=== PATIENT | female | born 1980 | race Caucasian/White ===

== ENCOUNTER 2016-08-01 15:58 | Inpatient (IN) | payer BC, OTHER ==
[~2016-08-01] VITALS: Ht 152.4 cm; Wt 109.8 kg
[~2016-08-01 15:58] MED LIST: ATIVAN1 MG PO; B COMPLEX1 EAC1 PO; BACTRIM DS TAB1 EACH PO; CALCIUM 600 +1 EAC1 PO; K-DUR 20 MEQ T20 MEQ PO; KLONOPIN0.5 MG; LABETALOL 100100 MG PO; LEVOTHYROXIN0.025 MG PO; LISINOPRIL20 MG PO; LISINOPRIL5 MG; MELATONIN3 MG PO; METOPROLOL SUCC25 M1; MULTIVITAMINS1 EAC7 PO; NORCO 5-325 TA1 EACH PO; ONE-A-DAY WOMENS PO; PERCOCET 10-321 EACH; PRAVACHOL20 MG; PRENATAL; PROZAC20 MG PO; TOPAMAX; TOPROL XL100 MG PO; TYLENOL W/CODEI1 TA2 PO; VITAMIN B-12500 MCG PO; VITAMINC500 PO; ZOCOR 10 MG TAB10 MG; ZOCOR20 MG PO; ZOLOFT; ZOLOFT50 MG PO; [UNRECOGNIZED DRUG - OTHER]
[2016-08-01 15:59] VITALS: BP 104/83
[2016-08-01] MEDS ORDERED: CLONAZEPAM 0.50.5 M1 PO (16:11)
[2016-08-01] MEDS ORDERED: SERTRALINE HCL100 MG PO (16:11)
[2016-08-01 16:25] LABS: URINE BILIRUBIN NEGATIVE (Negative); URINE BLOOD 3+ (Negative); URINE COLOR RED; URINE GLUCOSE-RANDOM* TRACE (Negative); URINE KETONES TRACE (Negative); URINE LEUKOCYTES-REFLEX TRACE (Negative); URINE PROTEIN (DIPSTICK) 3+ (Negative); URINE SPECIFIC GRAVITY >= 1.030 (1.003-1.035)
[2016-08-01 16:34] LABS: CASTS None Seen /LPF (None Seen); CRYSTALS None Seen /LPF (None Seen); SQUAMOUS 0-3 Few /LPF (0-3); URINE RBC >20 Many /HPF (0-2); URINE WBC-REFLEX 0-5 Rare /HPF (0-5)
[2016-08-01 16:39] LABS: ABSOLUTE NEUTROPHILS 4.2 thou/uL (1.4-8.2); BASOPHILS 1.1 % (0.0-2.0); EOSINOPHILS 2.4 % (0.0-3.0); HEMATOCRIT 41.3 % (37.0-47.0); HEMOGLOBIN 14.3 gm/dL (12.0-15.0); LYMPHOCYTES 26.4 % (24.0-44.0); MANUAL DIFF NO; MCH 31.9 pg (26.0-34.0); MCHC 34.5 g/dL (28.0-37.0); MCV 92.4 fL (80.0-100.0); MONOCYTES 5.8 % (1.0-8.0); PLATELET COUNT 186 thou/uL (150-400); POLYS 64.3 % (36.0-66.0); RBC 4.47 mil/uL (4.20-5.00); RDW 14.2 % (10.5-14.5); WBC 6.6 thou/uL (4.0-11.0)
[2016-08-01 16:46] LABS: AMP/METHAMP POSITIVE (Negative); BARBITURATES Negative (Negative); BENZODIAZEPINES POSITIVE (Negative); COCAINE Negative (Negative); METHADONE Negative (Negative); OPIATES Negative (Negative); PCP Negative (Negative); THC Negative (Negative)
[2016-08-01 16:47] LABS: CALCIUM 8.3 mg/dL (8.5-10.1); CREATININE 0.7 mg/dL (0.6-1.0); POTASSIUM 3.5 mmol/L (3.5-5.1)
[2016-08-01 16:52] LABS: TOTAL BILIRUBIN 0.6 mg/dL (<0.1-1.0); TOTAL PROTEIN 7.4 g/dL (6.4-8.2)
[2016-08-01 18:36] VITALS: BP 117/84
[2016-08-02 00:08] VITALS: BP 143/98
[2016-08-02 04:11] VITALS: BP 150/105
[2016-08-02 06:15] LABS: HEMOGLOBIN 13.5 gm/dL (12.0-15.0); MCH 32.3 pg (26.0-34.0); MCHC 34.7 g/dL (28.0-37.0); RBC 4.19 mil/uL (4.20-5.00); RDW 13.9 % (10.5-14.5); WBC 5.2 thou/uL (4.0-11.0)
[2016-08-02 06:28] LABS: CALCIUM 7.7 mg/dL (8.5-10.1); CREATININE 0.6 mg/dL (0.6-1.0); POTASSIUM 3.3 mmol/L (3.5-5.1)
[2016-08-02 07:29] VITALS: BP 158/100
[2016-08-02 11:47] VITALS: BP 147/98
[2016-08-02 15:36] VITALS: BP 153/115
[2016-08-02 19:24] VITALS: BP 154/95
[2016-08-03 04:07] VITALS: BP 149/106
[2016-08-03 06:04] LABS: ALBUMIN 2.7 g/dL (3.4-5.0); CALCIUM 7.5 mg/dL (8.5-10.1); CREATININE 0.6 mg/dL (0.6-1.0); POTASSIUM 3.4 mmol/L (3.5-5.1); TOTAL PROTEIN 6.5 g/dL (6.4-8.2)
[2016-08-03 06:12] LABS: ABSOLUTE NEUTROPHILS 2.8 thou/uL (1.4-8.2); BASOPHILS 0.5 % (0.0-2.0); EOSINOPHILS 2.6 % (0.0-3.0); HEMATOCRIT 34.7 % (37.0-47.0); HEMOGLOBIN 12.2 gm/dL (12.0-15.0); LYMPHOCYTES 32.7 % (24.0-44.0); MCH 31.9 pg (26.0-34.0); MCHC 35.3 g/dL (28.0-37.0); MCV 90.5 fL (80.0-100.0); MONOCYTES 6.6 % (1.0-8.0); PLATELET COUNT 121 thou/uL (150-400); POLYS 57.6 % (36.0-66.0); RBC 3.83 mil/uL (4.20-5.00); RDW 13.6 % (10.5-14.5); WBC 4.8 thou/uL (4.0-11.0)
[2016-08-03 06:18] LABS: MANUAL DIFF NO
[2016-08-03 07:20] VITALS: BP 151/98
[2016-08-03 11:06] VITALS: BP 139/98
[2016-08-03] MEDS ORDERED: CLONAZEPAM 0.50.5 M1 PO (13:59)
[2016-08-03] MEDS ORDERED: LEVAQUIN 500 M500 M1 PO (13:59)
[2016-08-03 14:09] VITALS: BP 139/98
== END 2016-08-03 15:27 | disposition home or self-care (01) | DRG 896 ==
LOC: ER 15:58 → 4W 17:02 → EROBS 17:02 → 4W 18:36
PROVIDERS: Hospitalist; Physician Assistant
DX: F10.239 Alcohol dependence with withdrawal, unspecified (principal); G92 Toxic encephalopathy; I10 Essential (primary) hypertension; E78.5 Hyperlipidemia, unspecified; F15.10 Other stimulant abuse, uncomplicated; E03.9 Hypothyroidism, unspecified; R79.89 Other specified abnormal findings of blood chemistry; F41.9 Anxiety disorder, unspecified; F17.210 Nicotine dependence, cigarettes, uncomplicated; Y90.6 Blood alcohol level of 120-199 mg/100 ml; Z88.1 Allergy status to other antibiotic agents; Z88.0 Allergy status to penicillin; Z79.899 Other long term (current) drug therapy; Z71.51 Drug abuse counseling and surveillance of drug abuser; Z90.49 Acquired absence of other specified parts of digestive tract
CPT/HCPCS: 10045

== ENCOUNTER 2017-08-15 21:39 | Emergency (ER) | payer OTHER ==
[~2017-08-15] VITALS: Ht 175.3 cm; Wt 130.6 kg
[~2017-08-15 21:39] MED LIST changes: +CHLORDIAZEPOXID25 M1 PO; +CLONAZEPAM 0.50.5 M1 PO; +LEVAQUIN 500 M500 M1 PO; +SERTRALINE HCL100 MG PO; +XANAX 0.25 MG0.25 MG PO; +ZANAFLEX4 MG PO
[2017-08-15 22:02] LABS: URINE BILIRUBIN NEGATIVE (Negative); URINE BLOOD NEGATIVE (Negative); URINE CLARITY CLEAR; URINE COLOR YELLOW; URINE GLUCOSE-RANDOM* NEGATIVE (Negative); URINE KETONES NEGATIVE (Negative); URINE LEUKOCYTES-REFLEX NEGATIVE (Negative); URINE NITRITE-REFLEX NEGATIVE (Negative); URINE PROTEIN (DIPSTICK) 1+ (Negative); URINE UROBILINOGEN 0.2 E.U./dl (0.2-1.0)
[2017-08-15 22:28] LABS: BASOPHILS 0.5 % (0.0-2.0); HEMATOCRIT 34.7 % (37.0-47.0); HEMOGLOBIN 11.9 gm/dL (12.0-15.0); LYMPHOCYTES 21.5 % (24.0-44.0); MCHC 34.2 g/dL (28.0-37.0); MCV 87.8 fL (80.0-100.0); MONOCYTES 5.4 % (1.0-8.0); PLATELET COUNT 190 thou/uL (150-400); POLYS 68.6 % (36.0-66.0); RBC 3.96 mil/uL (4.20-5.00); RDW 13.3 % (10.5-14.5); WBC 8.7 thou/uL (4.0-11.0)
[2017-08-15 22:36] LABS: CALCIUM 9.6 mg/dL (8.5-10.1); CREATININE 0.7 mg/dL (0.6-1.0); POTASSIUM 3.6 mmol/L (3.5-5.1)
[2017-08-15] MEDS ORDERED: PHENAZOPYRIDIN200 M2 PO (22:51)
[2017-08-15] MEDS ORDERED: MACROBID 100 M100 M1 PO (22:51)
== END 2017-08-15 23:02 | disposition home or self-care (01) ==
LOC: ER 21:39
PROVIDERS: Physician Assistant
DX: N39.0 Urinary tract infection, site not specified (principal); F17.210 Nicotine dependence, cigarettes, uncomplicated; I10 Essential (primary) hypertension; F41.9 Anxiety disorder, unspecified; F31.9 Bipolar disorder, unspecified; E78.5 Hyperlipidemia, unspecified; E03.9 Hypothyroidism, unspecified; Z88.1 Allergy status to other antibiotic agents; Z88.0 Allergy status to penicillin

== ENCOUNTER 2017-08-18 11:10 | Emergency (ER) | payer OTHER ==
[~2017-08-18] VITALS: Ht 167.6 cm; Wt 113.4 kg
--- NOTE | ~2017-08-18 | EKG ---
[address] [address] ELECTROCARDIOGRAM REPORT Name: CARLOSKAYKAY K [facility] [id number] Admission: 08/18/17 Attend Phys: Discharge: 08/18/17 Date of : 82 Report #: [id number] THIS REPORT FOR: //name// [facility] ED Test Date: 2017-08-18 Test Time: 11:23:03 Pat Name: KAYKAY CARLOS Department: Room: Gender: F Orchid Hand: MECCA : 1980 Requested By: January Aden Order Number: [id number] MD: Narinder Fernandes Measurements Intervals [place] Rate: 72 P: 28 FL: 161 QRS: 20 QRSD: 96 T: 35 QT: 413 QTc: 453 Interpretive Statements Sinus rhythm Probable left atrial enlargement Compared to ECG 04/18/2015 00:34:25 No significant changes Electronically Signed On 08-19-2017 7:58:30 CDT by Narinder Fernandes [email or web address] <ELECTRONICALLY SIGNED> By: Narinder Fernandes MD 08/19/17 0758 22 22 Narinder Fernandes MD /LEVI
[~2017-08-18 11:10] MED LIST changes: +MACROBID 100 M100 M1 PO; +PHENAZOPYRIDIN200 M2 PO
[2017-08-18 12:13] LABS: ABSOLUTE NEUTROPHILS 6.4 thou/uL (1.4-8.2); BASOPHILS 0.4 % (0.0-2.0); EOSINOPHILS 3.2 % (0.0-3.0); HEMOGLOBIN 12.1 gm/dL (12.0-15.0); LYMPHOCYTES 17.7 % (24.0-44.0); MCH 29.7 pg (26.0-34.0); MCHC 33.7 g/dL (28.0-37.0); MCV 88.2 fL (80.0-100.0); MONOCYTES 5.9 % (1.0-8.0); PLATELET COUNT 208 thou/uL (150-400); POLYS 72.8 % (36.0-66.0); RBC 4.08 mil/uL (4.20-5.00); RDW 13.7 % (10.5-14.5); WBC 8.8 thou/uL (4.0-11.0)
[2017-08-18 12:24] LABS: ANION GAP 9 mmol/L (7-16); BUN 15 mg/dL (7-18); CALCIUM 8.9 mg/dL (8.5-10.1); CHLORIDE 101 mmol/L (98-107); CO2 26 mmol/L (21-32); CREATININE 1.1 mg/dL (0.6-1.0); GLUCOSE 108 mg/dL (74-106); POTASSIUM 3.9 mmol/L (3.5-5.1); SODIUM 136 mmol/L (136-145)
[2017-08-18 12:28] LABS: ALBUMIN 3.4 g/dL (3.4-5.0); DIRECT BILIRUBIN < 0.1 mg/dL (<0.1-0.3); LIPASE 164 U/L (73-393); SGOT 35 U/L (15-37); SGPT 44 U/L (30-65); TOTAL BILIRUBIN 0.3 mg/dL (<0.1-1.0); TOTAL PROTEIN 7.8 g/dL (6.4-8.2)
[2017-08-18 13:01] LABS: URINE BILIRUBIN NEGATIVE (Negative); URINE BLOOD NEGATIVE (Negative); URINE CLARITY SL CLOUDY; URINE COLOR YELLOW; URINE GLUCOSE-RANDOM* TRACE (Negative); URINE KETONES TRACE (Negative); URINE PROTEIN (DIPSTICK) 2+ (Negative)
[2017-08-18 13:02] LABS: URINE LEUKOCYTES-REFLEX 1+ (Negative); URINE NITRITE-REFLEX POSITIVE (Negative)
[2017-08-18 13:19] LABS: CASTS None Seen /LPF (None Seen); CRYSTALS None Seen /LPF (None Seen); SQUAMOUS >10 Many /LPF (0-3); URINE RBC None Seen /HPF (0-2); URINE WBC-REFLEX 0-5 Rare /HPF (0-5)
[2017-08-18] MEDS ORDERED: BACTRIM DS TAB1 EACH PO (18:16)
== END 2017-08-18 18:38 | disposition home or self-care (01) ==
LOC: ER 11:10
PROVIDERS: Emergency Medicine
DX: N39.0 Urinary tract infection, site not specified (principal); R55 Syncope and collapse; I95.9 Hypotension, unspecified; I10 Essential (primary) hypertension; F41.9 Anxiety disorder, unspecified; E78.5 Hyperlipidemia, unspecified; F31.9 Bipolar disorder, unspecified; E03.9 Hypothyroidism, unspecified; F17.210 Nicotine dependence, cigarettes, uncomplicated; Z88.0 Allergy status to penicillin; Z88.1 Allergy status to other antibiotic agents

== ENCOUNTER 2018-11-19 07:27 | Inpatient (IN) | payer OTHER ==
[~2018-11-19] VITALS: Ht 175.3 cm; Wt 113.4 kg
[2018-11-19 07:28] VITALS: BP 190/117
[2018-11-19 08:01] LABS: ABSOLUTE NEUTROPHILS 3.3 thou/uL (1.4-8.2); BASOPHILS 0.8 % (0.0-2.0); EOSINOPHILS 2.6 % (0.0-3.0); HEMATOCRIT 38.6 % (37.0-47.0); HEMOGLOBIN 13.2 gm/dL (12.0-15.0); LYMPHOCYTES 29.7 % (24.0-44.0); MCH 30.8 pg (26.0-34.0); MCHC 34.1 g/dL (28.0-37.0); MCV 90.3 fL (80.0-100.0); MONOCYTES 6.7 % (1.0-8.0); PLATELET COUNT 196 thou/uL (150-400); POLYS 60.2 % (36.0-66.0); RBC 4.27 mil/uL (4.20-5.00); RDW 14.5 % (10.5-14.5); WBC 5.5 thou/uL (4.0-11.0)
[2018-11-19 08:15] LABS: ALBUMIN 2.8 g/dL (3.4-5.0); ANION GAP 14 mmol/L (7-16); BUN 11 mg/dL (7-18); CALCIUM 8.2 mg/dL (8.5-10.1); CHLORIDE 103 mmol/L (98-107); CO2 23 mmol/L (21-32); CREATININE 0.6 mg/dL (0.6-1.0); DIRECT BILIRUBIN 0.1 mg/dL (<0.1-0.3); GLUCOSE 119 mg/dL (74-106); MAGNESIUM 1.3 mg/dL (1.8-2.4); SGOT 54 U/L (15-37); SGPT 33 U/L (30-65); SODIUM 140 mmol/L (136-145); TOTAL BILIRUBIN 0.5 mg/dL (<0.1-1.0); TROPONIN-I <0.06 ng/mL (<0.06)
[2018-11-19 08:17] LABS: POTASSIUM 2.8 mmol/L (3.5-5.1)
--- NOTE | 2018-11-19 08:26 | EKG ---
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1980 Requested By: Gadiel Oviedo Order Number: [id number] MD: Dane Stewart Measurements Intervals [place] Rate: 106 P: 49 MD: 141 QRS: 18 QRSD: 93 T: 10 QT: 386 QTc: 513 Interpretive Statements Sinus tachycardia Borderline repolarization abnormality Prolonged QT interval Compared to ECG 08/18/2017 11:23:03 Prolonged QT interval now present Electronically Signed On 11-19-2018 8:26:25 CDT by Dane Stewart [email or web address] ��������������������������������������������� <ELECTRONICALLY SIGNED> ���������������������������������������� By: Dane Stewart MD, [facility] ��������������������������������������������� 11/19/18 0826 4 Dane Stewart MD, FAC /EPI
[2018-11-19] MEDS ORDERED: CLONIDINE HCL0.3 M3 PO (08:44)
[2018-11-19] MEDS ORDERED: LOPRESSOR25 PO (08:45)
[2018-11-19 17:13] VITALS: BP 153/112
--- NOTE | 2018-11-19 18:35 | NUR ---
PATIENT ADMIT TO UNIT AT 1715 FROM ER. A/O X4. DENIES N/V. NO PAIN. CIW 2. NOTED K+/MG+ LOW FROM ER. PHYSICIAN DID NOT WANT REPLACE THEM. PATIENT AMBULATED WITH STEADY GAIT. WILL KEEP MONITOR.
[2018-11-19 19:32] VITALS: BP 156/107
[2018-11-19 22:06] LABS: URINE BILIRUBIN NEGATIVE (Negative); URINE BLOOD 2+ (Negative); URINE CLARITY SL CLOUDY; URINE COLOR YELLOW; URINE GLUCOSE-RANDOM* NEGATIVE (Negative); URINE KETONES NEGATIVE (Negative); URINE LEUKOCYTES-REFLEX TRACE (Negative); URINE NITRITE-REFLEX NEGATIVE (Negative); URINE PROTEIN (DIPSTICK) 3+ (Negative); URINE SPECIFIC GRAVITY 1.025 (1.005-1.035); URINE UROBILINOGEN 0.2 E.U./dl (0.2-1.0)
[2018-11-19 22:16] LABS: SQUAMOUS 0-3 Few /LPF (0-3); TRANSITIONAL EPITHEL CELL 0-3 Few /LPF (None Seen)
[2018-11-19 22:17] LABS: AMP/METHAMP POSITIVE (Negative); BACTERIA-REFLEX 1-9 Few /HPF (None Seen); BARBITURATES Negative (Negative); BENZODIAZEPINES Negative (Negative); CASTS None Seen /LPF (None Seen); COCAINE Negative (Negative); CRYSTALS None Seen /LPF (None Seen); METHADONE Negative (Negative); MUCUS 0-3 Light strn/LPF (None Seen); OPIATES Negative (Negative); PCP Negative (Negative); URINE RBC 3-10 Few /HPF (0-2); URINE WBC-REFLEX 6-15 Few /HPF (0-5)
[2018-11-19 23:58] VITALS: BP 152/104
--- NOTE | 2018-11-20 03:34 | NUR ---
Pt. feeling anxious and worried about having seizures after shift change. CIWA score of 12 initially. Lorazepam 2 mg po given per protocol with some relief of symptoms ,CIWA down to 5. She slept most of the night. Up with assist to bathroom though she has one period of incontinence at HS. Urine specimen sent to lab and results called to [facility]. Also informed her of low K 2.8 and low Mg 1.3. Electrolyte standing order initiated and treated per protocol. No seizure activities.Seizure precaution maintained. Mild headache and nausea relieved after she rested. Will continue to monitor.
[2018-11-20 04:17] VITALS: BP 149/104
[2018-11-20 06:03] LABS: CALCIUM 7.4 mg/dL (8.5-10.1); CREATININE 0.5 mg/dL (0.6-1.0); MAGNESIUM 1.5 mg/dL (1.8-2.4); POTASSIUM 3.3 mmol/L (3.5-5.1)
[2018-11-20 08:16] VITALS: BP 151/102
[2018-11-20 10:18] LABS: MAGNESIUM 1.5 mg/dL (1.8-2.4); POTASSIUM 3.6 mmol/L (3.5-5.1)
[2018-11-20 11:09] VITALS: BP 146/99
--- NOTE | 2018-11-20 13:49 | NUR ---
PT RESING IN BED, SLEEPING MUCH OF THE DAY. CIWA SCORE REMAINS ZERO, REPLACE ELECTROLYTES NEED. PT TAKING IMN GOOD PO, WILL CONTINUE TO ASSESS.
[2018-11-20 15:11] VITALS: BP 123/83
[2018-11-20 19:12] VITALS: BP 139/88
[2018-11-20 23:33] VITALS: BP 153/95
[2018-11-21 03:36] VITALS: BP 153/106
[2018-11-21 05:59] LABS: ALBUMIN 2.3 g/dL (3.4-5.0); CALCIUM 8.3 mg/dL (8.5-10.1); CREATININE 0.5 mg/dL (0.6-1.0); MAGNESIUM 1.5 mg/dL (1.8-2.4); POTASSIUM 3.8 mmol/L (3.5-5.1); TOTAL BILIRUBIN 0.5 mg/dL (<0.1-1.0); TOTAL PROTEIN 5.6 g/dL (6.4-8.2)
--- NOTE | 2018-11-21 07:36 | NUR ---
PATIENT IS ALERT AND ORIENTED. PATIENT IS CIWA. PATIENT IS NSR ON TELE. PATIENT IS SBA LOW FALL RISK. PATIENTS LBM WAS THE 12TH. PATIENT HAS SOME SWELLING TO RIGHT FOOT DUE TO PAST SURGERY PATIENT STATES FOOT IS ALWAYS SWOLLEN. PATIENT IS ROOM AIR. PATEINT DENIES PAIN. PATIENT IS RESTING COMFORTABLY. NAUSEA AND HEADACHE IMPROVING. WCM. PATIENT IS PROGRESSING TO GOALS.
[2018-11-21 07:56] VITALS: BP 150/103; BP 157/113
[2018-11-21] MEDS ORDERED: CLONIDINE HCL0.2 M2 PO (09:41)
[2018-11-21] MEDS ORDERED: VITAMIN B-1100 M2 PO (09:42)
[2018-11-21] MEDS ORDERED: PRINIVIL20 MG PO (09:43)
[2018-11-21] MEDS ORDERED: CHLORDIAZEPOXID10 MG PO (09:45)
[2018-11-21 11:19] VITALS: BP 153/106
== END 2018-11-21 11:54 | disposition home or self-care (01) | DRG 897 ==
LOC: ER 07:27 → EROBS 08:54 → 3W 08:54
PROVIDERS: Emergency Medicine; Nurse Practitioner Family; ADMIT Hospitalist
DX: F10.231 Alcohol dependence with withdrawal delirium (principal); E46 Unspecified protein-calorie malnutrition; I10 Essential (primary) hypertension; F41.9 Anxiety disorder, unspecified; E83.42 Hypomagnesemia; F31.9 Bipolar disorder, unspecified; E03.9 Hypothyroidism, unspecified; E78.00 Pure hypercholesterolemia, unspecified; F17.210 Nicotine dependence, cigarettes, uncomplicated; E78.5 Hyperlipidemia, unspecified; Z88.0 Allergy status to penicillin; Z88.8 Allergy status to other drugs, medicaments and biological substances; Z68.36 Body mass index [BMI] 36.0-36.9, adult; Z91.19 Patient's noncompliance with other medical treatment and regimen; Z79.899 Other long term (current) drug therapy
CPT/HCPCS: 10879

== ENCOUNTER 2019-01-31 03:50 | Emergency (ER) | payer OTHER ==
[~2019-01-31] VITALS: Ht 175.3 cm; Wt 115.2 kg
[~2019-01-31 03:50] MED LIST changes: +CHLORDIAZEPOXID10 MG PO; +CLONIDINE HCL0.2 M2 PO; +CLONIDINE HCL0.3 M3 PO; +LOPRESSOR25 PO; +PRINIVIL20 MG PO; +VITAMIN B-1100 M2 PO
[2019-01-31] MEDS ORDERED: NEURONTIN 300M300 M2 PO (04:07)
[2019-01-31] MEDS ORDERED: LEVO-T75 MCG PO (04:08)
[2019-01-31] MEDS ORDERED: MAG-TAB SR84 MG PO (04:08)
[2019-01-31] MEDS ORDERED: NORVASC 2.5 MG2.5 M1 PO (04:09)
[2019-01-31] MEDS ORDERED: CARVEDILOL12.5 MG PO (04:11)
[2019-01-31] MEDS ORDERED: ABILIFY 2 MG2 M1 PO (04:11)
[2019-01-31 04:34] LABS: URINE BILIRUBIN NEGATIVE (Negative); URINE BLOOD NEGATIVE (Negative); URINE CLARITY CLEAR; URINE COLOR YELLOW; URINE GLUCOSE-RANDOM* NEGATIVE (Negative); URINE KETONES NEGATIVE (Negative); URINE LEUKOCYTES-REFLEX NEGATIVE (Negative); URINE NITRITE-REFLEX NEGATIVE (Negative); URINE PROTEIN (DIPSTICK) 2+ (Negative); URINE UROBILINOGEN 0.2 E.U./dl (0.2-1.0)
[2019-01-31 04:40] LABS: AMP/METHAMP Negative (Negative); BARBITURATES Negative (Negative); BENZODIAZEPINES Negative (Negative); COCAINE Negative (Negative); METHADONE Negative (Negative); OPIATES Negative (Negative); PCP Negative (Negative)
[2019-01-31 04:40] LABS: BACTERIA-REFLEX None Seen /HPF (None Seen); CASTS None Seen /LPF (None Seen); CRYSTALS None Seen /LPF (None Seen); MUCUS None Seen strn/LPF (None Seen); SQUAMOUS 0-3 Few /LPF (0-3); URINE RBC None Seen /HPF (0-2); URINE WBC-REFLEX None Seen /HPF (0-5)
[2019-01-31 05:08] LABS: ABSOLUTE NEUTROPHILS 6.8 thou/uL (1.4-8.2); BASOPHILS 0.8 % (0.0-2.0); EOSINOPHILS 2.6 % (0.0-3.0); HEMATOCRIT 35.4 % (37.0-47.0); LYMPHOCYTES 19.5 % (24.0-44.0); MCH 30.8 pg (26.0-34.0); MCHC 33.9 g/dL (28.0-37.0); MONOCYTES 3.9 % (1.0-8.0); PLATELET COUNT 228 thou/uL (150-400); POLYS 73.2 % (36.0-66.0); RBC 3.89 mil/uL (4.20-5.00); RDW 13.4 % (10.5-14.5); WBC 9.3 thou/uL (4.0-11.0)
[2019-01-31 05:17] LABS: ANION GAP 8 mmol/L (7-16); BUN 15 mg/dL (7-18); CALCIUM 9.5 mg/dL (8.5-10.1); CHLORIDE 101 mmol/L (98-107); CO2 29 mmol/L (21-32); CREATININE 0.7 mg/dL (0.6-1.0); GLUCOSE 88 mg/dL (74-106); POTASSIUM 3.7 mmol/L (3.5-5.1); SODIUM 138 mmol/L (136-145)
[2019-01-31 05:23] LABS: ALBUMIN 3.1 g/dL (3.4-5.0); MAGNESIUM 1.5 mg/dL (1.8-2.4); SALICYLATE < 2.8 mg/dL (2.8-20.0); SGOT 25 U/L (15-37); SGPT 25 U/L (30-65); TOTAL BILIRUBIN 0.2 mg/dL (<0.1-1.0); TOTAL PROTEIN 7.1 g/dL (6.4-8.2)
[2019-01-31] MEDS ORDERED: ATIVAN2 MG PO (05:57)
[2019-01-31] MEDS ORDERED: MAG-OXIDE400 MG PO (05:57)
[2019-01-31 06:12] VITALS: BP 131/87
--- NOTE | 2019-02-02 07:46 | EKG ---
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1980 Requested By: Cristian Talbert Order Number: [id number] MD: Dane Stewart Measurements Intervals [place] Rate: 85 P: 31 [place]: 148 QRS: 11 QRSD: 91 T: 20 QT: 373 QTc: 444 Interpretive Statements Sinus rhythm Normal tracing Compared to ECG 11/19/2018 08:15:07 Sinus tachycardia no longer present Prolonged QT interval no longer present Electronically Signed On 02-02-2019 7:46:10 [facility] by Dane Stewart [email or web address] <ELECTRONICALLY SIGNED> By: Dane Stewart MD, [facility] 02/02/19 0746 044 044 Dane Stewart MD, [facility] /EPI
== END 2019-01-31 06:13 | disposition home or self-care (01) ==
LOC: ER 03:50
PROVIDERS: Emergency Medicine
DX: F10.239 Alcohol dependence with withdrawal, unspecified (principal); F15.90 Other stimulant use, unspecified, uncomplicated; E83.42 Hypomagnesemia; I10 Essential (primary) hypertension; F41.9 Anxiety disorder, unspecified; F31.9 Bipolar disorder, unspecified; E03.9 Hypothyroidism, unspecified; E78.5 Hyperlipidemia, unspecified; F17.210 Nicotine dependence, cigarettes, uncomplicated; Z90.89 Acquired absence of other organs; Z88.1 Allergy status to other antibiotic agents; Z88.0 Allergy status to penicillin; Z59.0 Homelessness

== ENCOUNTER 2019-03-04 13:17 | Emergency (ER) | payer OTHER ==
[~2019-03-04] VITALS: Ht 172.7 cm; Wt 122.0 kg
[~2019-03-04 13:17] MED LIST changes: +ABILIFY 2 MG2 M1 PO; +ATIVAN2 MG PO; +CARVEDILOL12.5 MG PO; +LEVO-T75 MCG PO; +MAG-OXIDE400 MG PO; +MAG-TAB SR84 MG PO; +NEURONTIN 300M300 M2 PO; +NORVASC 2.5 MG2.5 M1 PO
[2019-03-04 13:32] LABS: ABSOLUTE NEUTROPHILS 6.1 thou/uL (1.4-8.2); BASOPHILS 0.5 % (0.0-2.0); EOSINOPHILS 2.8 % (0.0-3.0); HEMOGLOBIN 11.6 gm/dL (12.0-15.0); MCH 29.7 pg (26.0-34.0); MCHC 33.1 g/dL (28.0-37.0); MCV 89.7 fL (80.0-100.0); MONOCYTES 6.3 % (1.0-8.0); PLATELET COUNT 227 thou/uL (150-400); POLYS 73.4 % (36.0-66.0); RBC 3.91 mil/uL (4.20-5.00); RDW 13.3 % (10.5-14.5); WBC 8.4 thou/uL (4.0-11.0)
[2019-03-04 13:38] LABS: ANION GAP 11 mmol/L (7-16); BUN 6 mg/dL (7-18); CALCIUM 9.1 mg/dL (8.5-10.1); CHLORIDE 104 mmol/L (98-107); CO2 26 mmol/L (21-32); CREATININE 0.7 mg/dL (0.6-1.0); GLUCOSE 83 mg/dL (74-106); POTASSIUM 3.5 mmol/L (3.5-5.1); SODIUM 141 mmol/L (136-145)
[2019-03-04 13:48] LABS: ALBUMIN 3.3 g/dL (3.4-5.0); SGOT 17 U/L (15-37); SGPT 18 U/L (30-65); TOTAL BILIRUBIN 0.2 mg/dL (<0.1-1.0); TOTAL PROTEIN 7.3 g/dL (6.4-8.2); TROPONIN-I <0.06 ng/mL (<0.06)
[2019-03-04 13:49] LABS: URINE BILIRUBIN NEGATIVE (Negative); URINE BLOOD NEGATIVE (Negative); URINE CLARITY CLEAR; URINE COLOR YELLOW; URINE GLUCOSE-RANDOM* NEGATIVE (Negative); URINE KETONES NEGATIVE (Negative); URINE NITRITE-REFLEX NEGATIVE (Negative); URINE PROTEIN (DIPSTICK) NEGATIVE (Negative); URINE SPECIFIC GRAVITY <= 1.005 (1.005-1.035); URINE UROBILINOGEN 0.2 E.U./dl (0.2-1.0)
[2019-03-04 13:51] LABS: URINE LEUKOCYTES-REFLEX 1+ (Negative)
[2019-03-04] MEDS ORDERED: ABILIFY10 MG PO (13:56)
[2019-03-04 13:57] LABS: AMP/METHAMP Negative (Negative); BARBITURATES Negative (Negative); BENZODIAZEPINES Negative (Negative); COCAINE Negative (Negative); METHADONE Negative (Negative); OPIATES Negative (Negative); PCP Negative (Negative)
[2019-03-04] MEDS ORDERED: LEVO-T25 MCG PO (13:57)
[2019-03-04] MEDS ORDERED: COZAAR 25 MG TA25 MG PO (13:58)
[2019-03-04 13:59] LABS: BACTERIA-REFLEX 1-9 Few /HPF (None Seen); CASTS None Seen /LPF (None Seen); CRYSTALS None Seen /LPF (None Seen); SQUAMOUS 4-10 Moderate /LPF (0-3); URINE RBC 0-2 Rare /HPF (0-2); URINE WBC-REFLEX 6-15 Few /HPF (0-5)
[2019-03-04] MEDS ORDERED: SERTRALINE HCL100 MG PO (13:59)
[2019-03-04] MEDS ORDERED: VISTARIL50 MG PO (14:00)
[2019-03-04] MEDS ORDERED: ZANAFLEX4 M1 PO (14:00)
[2019-03-04] MEDS ORDERED: NAPROSYN500 MG PO (14:54)
[2019-03-04 15:00] VITALS: BP 139/100
--- NOTE | 2019-03-06 14:59 | EKG ---
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
== END 2019-03-04 15:00 | disposition home or self-care (01) ==
LOC: ER 13:17
PROVIDERS: Emergency Medicine
DX: R07.89 Other chest pain (principal); I10 Essential (primary) hypertension; F41.9 Anxiety disorder, unspecified; E78.5 Hyperlipidemia, unspecified; F31.9 Bipolar disorder, unspecified; E03.9 Hypothyroidism, unspecified; F17.210 Nicotine dependence, cigarettes, uncomplicated; Z90.89 Acquired absence of other organs; Z98.890 Other specified postprocedural states; Z88.0 Allergy status to penicillin; Z88.1 Allergy status to other antibiotic agents

== ENCOUNTER 2020-12-22 19:25 | Emergency (ER) | payer OTHER ==
[~2020-12-22] VITALS: Ht 172.7 cm; Wt 127.5 kg
[~2020-12-22 19:25] MED LIST changes: +ABILIFY10 MG PO; +COZAAR 25 MG TA25 MG PO; +LEVO-T25 MCG PO; +NAPROSYN500 MG PO; +VISTARIL50 MG PO; +ZANAFLEX4 M1 PO
[2020-12-22] MEDS ORDERED: KAPSPARGO SPRIN50 MG PO (19:32)
[2020-12-22 20:59] LABS: ABSOLUTE NEUTROPHILS 3.6 thou/uL (1.4-8.2); EOSINOPHILS 2.8 % (0.0-3.0); HEMATOCRIT 39.4 % (37.0-47.0); HEMOGLOBIN 13.3 gm/dL (12.0-15.0); LYMPHOCYTES 41.1 % (24.0-44.0); MCH 29.3 pg (26.0-34.0); MCHC 33.7 g/dL (28.0-37.0); MCV 86.8 fL (80.0-100.0); MONOCYTES 6.8 % (1.0-8.0); PLATELET COUNT 220 thou/uL (150-400); POLYS 48.3 % (36.0-66.0); RBC 4.54 mil/uL (4.20-5.00); RDW 14.7 % (10.5-14.5); WBC 7.4 thou/uL (4.0-11.0)
[2020-12-22 21:10] LABS: CALCIUM 7.6 mg/dL (8.5-10.1); CREATININE 0.7 mg/dL (0.6-1.0); POTASSIUM 3.1 mmol/L (3.5-5.1)
[2020-12-22] MEDS ORDERED: ATIVAN0.5 M1 PO (21:23)
[2020-12-22] MEDS ORDERED: ONDANSETRON HCL4 M2 PO (21:23)
[2020-12-22 22:00] VITALS: BP 124/84
== END 2020-12-22 22:56 | disposition home or self-care (01) ==
LOC: ER 19:25
PROVIDERS: Emergency Medicine
DX: F10.129 Alcohol abuse with intoxication, unspecified (principal); I10 Essential (primary) hypertension; F41.9 Anxiety disorder, unspecified; F10.10 Alcohol abuse, uncomplicated; E78.5 Hyperlipidemia, unspecified; E03.9 Hypothyroidism, unspecified; F31.9 Bipolar disorder, unspecified; F15.10 Other stimulant abuse, uncomplicated; F17.210 Nicotine dependence, cigarettes, uncomplicated; Z90.49 Acquired absence of other specified parts of digestive tract; Z79.899 Other long term (current) drug therapy; Z98.890 Other specified postprocedural states; Z79.891 Long term (current) use of opiate analgesic; Z88.0 Allergy status to penicillin; Z88.1 Allergy status to other antibiotic agents; Y90.6 Blood alcohol level of 120-199 mg/100 ml

== ENCOUNTER 2021-01-10 23:02 | Emergency (ER) | payer OTHER ==
[~2021-01-10] VITALS: Ht 175.3 cm; Wt 127.0 kg
[~2021-01-10 23:02] MED LIST changes: +ATIVAN0.5 M1 PO; +KAPSPARGO SPRIN50 MG PO; +ONDANSETRON HCL4 M2 PO
[2021-01-10] MEDS ORDERED: LEVO-T50 MCG PO (23:18)
[2021-01-11 00:27] LABS: ABSOLUTE NEUTROPHILS 2.7 thou/uL (1.4-8.2); BASOPHILS 1.3 % (0.0-2.0); EOSINOPHILS 1.5 % (0.0-3.0); HEMATOCRIT 41.4 % (37.0-47.0); HEMOGLOBIN 13.5 gm/dL (12.0-15.0); LYMPHOCYTES 48.5 % (24.0-44.0); MCH 28.8 pg (26.0-34.0); MCHC 32.7 g/dL (28.0-37.0); MCV 88.2 fL (80.0-100.0); MONOCYTES 8.6 % (1.0-8.0); PLATELET COUNT 271 thou/uL (150-400); POLYS 40.1 % (36.0-66.0); RDW 14.4 % (10.5-14.5); WBC 6.7 thou/uL (4.0-11.0)
[2021-01-11 00:34] LABS: URINE BILIRUBIN NEGATIVE (Negative); URINE BLOOD NEGATIVE (Negative); URINE CLARITY SL CLOUDY; URINE COLOR YELLOW; URINE GLUCOSE-RANDOM* NEGATIVE (Negative); URINE KETONES NEGATIVE (Negative); URINE NITRITE-REFLEX NEGATIVE (Negative); URINE PROTEIN (DIPSTICK) 2+ (Negative); URINE SPECIFIC GRAVITY 1.015 (1.005-1.035); URINE UROBILINOGEN 0.2 E.U./dl (0.2-1.0)
[2021-01-11 00:46] LABS: URINE LEUKOCYTES-REFLEX 1+ (Negative)
[2021-01-11 00:50] LABS: ANION GAP 9 mmol/L (7-16); BACTERIA-REFLEX 1-9 Few /HPF (None Seen); BUN 16 mg/dL (7-18); CALCIUM 8.4 mg/dL (8.5-10.1); CHLORIDE 102 mmol/L (98-107); CO2 32 mmol/L (21-32); CREATININE 0.9 mg/dL (0.6-1.0); CRYSTALS None Seen /LPF (None Seen); GLUCOSE 110 mg/dL (74-106); HYALINE CASTS 0-3 Few /LPF (None Seen); MUCUS 4-6 Moderate strn/LPF (None Seen); POTASSIUM 3.8 mmol/L (3.5-5.1); SODIUM 143 mmol/L (136-145); SQUAMOUS 4-10 Moderate /LPF (0-3); URINE RBC 3-10 Few /HPF (NONE SEEN); URINE WBC-REFLEX 6-15 Few /HPF (0-5)
[2021-01-11 00:52] LABS: AMP/METHAMP POSITIVE (Negative); BARBITURATES Negative (Negative); BENZODIAZEPINES Negative (Negative); COCAINE Negative (Negative); METHADONE Negative (Negative); OPIATES Negative (Negative); PCP Negative (Negative)
[2021-01-11 00:56] LABS: ALBUMIN 2.9 g/dL (3.4-5.0); SALICYLATE < 2.8 mg/dL (2.8-20.0); SGOT 131 U/L (15-37); SGPT 83 U/L (14-59); TOTAL BILIRUBIN 0.3 mg/dL (0.2-1.0); TOTAL PROTEIN 6.4 g/dL (6.4-8.2)
[2021-01-11 03:10] VITALS: BP 126/67
--- NOTE | 2021-01-11 08:33 | EKG ---
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1980 Requested By: Enoch Chu Order Number: [id number] MD: Dane Stewart Measurements Intervals [place] Rate: 97 P: 12 NC: 153 QRS: 10 QRSD: 99 T: 70 QT: 367 QTc: 466 Interpretive Statements Sinus rhythm no significant abnormality Baseline wander in lead(s) V4,V6 Compared to ECG 03/04/2019 13:18:17 no significant change was found Electronically Signed On 01-11-2021 8:32:50 CDT by Dane Stewart [email or web address] <ELECTRONICALLY SIGNED> By: Dane Stewart MD, [facility] 01/11/21 0832 2336 35 Dane Stewart MD, FACC /EPI
== END 2021-01-11 03:10 | disposition home or self-care (01) ==
LOC: ER 23:02
PROVIDERS: Emergency Medicine
DX: F10.129 Alcohol abuse with intoxication, unspecified (principal); Z20.822 Contact with and (suspected) exposure to COVID-19; I10 Essential (primary) hypertension; F41.9 Anxiety disorder, unspecified; F10.10 Alcohol abuse, uncomplicated; F31.9 Bipolar disorder, unspecified; E78.5 Hyperlipidemia, unspecified; E03.9 Hypothyroidism, unspecified; F15.10 Other stimulant abuse, uncomplicated; F17.210 Nicotine dependence, cigarettes, uncomplicated; Y90.8 Blood alcohol level of 240 mg/100 ml or more; Z98.890 Other specified postprocedural states; Z79.891 Long term (current) use of opiate analgesic; Z79.899 Other long term (current) drug therapy; Z79.1 Long term (current) use of non-steroidal anti-inflammatories (NSAID); Z88.1 Allergy status to other antibiotic agents; Z88.0 Allergy status to penicillin

== ENCOUNTER 2021-04-15 19:30 | Emergency (ER) | payer OTHER ==
[~2021-04-15] VITALS: Ht 175.3 cm; Wt 127.0 kg
[~2021-04-15 19:30] MED LIST changes: +LEVO-T50 MCG PO
[2021-04-15 20:31] LABS: URINE BILIRUBIN NEGATIVE (Negative); URINE BLOOD NEGATIVE (Negative); URINE CLARITY CLEAR; URINE COLOR YELLOW; URINE GLUCOSE-RANDOM* NEGATIVE (Negative); URINE KETONES NEGATIVE (Negative); URINE LEUKOCYTES-REFLEX NEGATIVE (Negative); URINE NITRITE-REFLEX NEGATIVE (Negative); URINE PROTEIN (DIPSTICK) 3+ (Negative); URINE SPECIFIC GRAVITY 1.025 (1.005-1.035); URINE UROBILINOGEN 0.2 E.U./dl (0.2-1.0)
[2021-04-15 20:46] LABS: SQUAMOUS >10 Many /LPF (0-3)
[2021-04-15 20:48] LABS: BACTERIA-REFLEX 1-9 Few /HPF (None Seen); CRYSTALS None Seen /LPF (None Seen); HYALINE CASTS 0-3 Few /LPF (None Seen); URINE RBC 1-2 Rare /HPF (NONE SEEN); URINE WBC-REFLEX 0-5 Rare /HPF (0-5)
[2021-04-15 20:49] LABS: AMP/METHAMP POSITIVE (Negative); BARBITURATES Negative (Negative); BENZODIAZEPINES Negative (Negative); COCAINE Negative (Negative); METHADONE Negative (Negative); OPIATES Negative (Negative); PCP Negative (Negative)
[2021-04-15 21:02] LABS: ABSOLUTE NEUTROPHILS 3.6 thou/uL (1.4-8.2); EOSINOPHILS 2.7 % (0.0-3.0); HEMATOCRIT 42.5 % (37.0-47.0); HEMOGLOBIN 14.2 gm/dL (12.0-15.0); LYMPHOCYTES 36.5 % (24.0-44.0); MCH 28.4 pg (26.0-34.0); MCHC 33.4 g/dL (28.0-37.0); MCV 85.3 fL (80.0-100.0); MONOCYTES 7.3 % (1.0-8.0); PLATELET COUNT 236 thou/uL (150-400); POLYS 52.5 % (36.0-66.0); RBC 4.98 mil/uL (4.20-5.00); RDW 13.8 % (10.5-14.5); WBC 6.9 thou/uL (4.0-11.0)
[2021-04-15 21:24] LABS: CALCIUM 8.3 mg/dL (8.5-10.1); CREATININE 0.8 mg/dL (0.6-1.0); POTASSIUM 3.5 mmol/L (3.5-5.1)
[2021-04-15 21:32] LABS: ALBUMIN 3.1 g/dL (3.4-5.0); MAGNESIUM 1.4 mg/dL (1.8-2.4); TOTAL BILIRUBIN 0.3 mg/dL (0.2-1.0); TOTAL PROTEIN 6.7 g/dL (6.4-8.2)
[2021-04-16 03:11] VITALS: BP 128/63
--- NOTE | 2021-04-17 12:53 | EKG ---
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
== END 2021-04-16 02:55 | disposition home or self-care (01) ==
LOC: ER 19:30
PROVIDERS: Emergency Medicine
DX: F10.129 Alcohol abuse with intoxication, unspecified (principal); Z20.822 Contact with and (suspected) exposure to COVID-19; E83.42 Hypomagnesemia; I10 Essential (primary) hypertension; F41.9 Anxiety disorder, unspecified; F10.10 Alcohol abuse, uncomplicated; F31.9 Bipolar disorder, unspecified; E78.5 Hyperlipidemia, unspecified; E03.9 Hypothyroidism, unspecified; F17.210 Nicotine dependence, cigarettes, uncomplicated; Z90.89 Acquired absence of other organs; Z79.899 Other long term (current) drug therapy; Z79.891 Long term (current) use of opiate analgesic; Z88.1 Allergy status to other antibiotic agents; Z88.0 Allergy status to penicillin